=== PATIENT | male | born 1950 | race Caucasian/White ===

== ENCOUNTER 2018-05-13 05:35 | Outpatient (CLI) | payer BC, MEDICARE ==
[~2018-05-13] VITALS: Ht 180.3 cm; Wt 67.6 kg
== END 2018-05-13 13:26 | disposition home or self-care (01) ==
LOC: PREOP 05:35
PROVIDERS: ATTEND Surgery
DX: Z01.818 Encounter for other preprocedural examination (principal)

== ENCOUNTER 2018-05-16 07:59 | Day surgery (SDC) | payer BC, MEDICARE ==
[~2018-05-16] VITALS: Ht 180.3 cm; Wt 62.2 kg
--- OUTSIDE RECORDS SUMMARY | 2018-05-16 08:04 | XMS REPORT ---
Author Author PITER MOREIRA [facility] Address [address] [place], [place] [id number] Care Team Providers Care Customer Support Consultant Name Role Phone PITER MOREIRA PCP Unavailable Allergies and Adverse Reactions Name Reaction Notes NO KNOWN DRUG ALLERGIES Plan of Treatment Planned Activity Comments Planned Date Planned Time Plan/Goal COMPLETE CBC W/AUTO DIFF WBC 04/13/2015 12:00 AM COMPREHEN METABOLIC PANEL 04/13/2015 12:00 AM LIPID PANEL 04/13/2015 12:00 AM ASSAY OF TOTAL TESTOSTERONE 04/13/2015 12:00 AM COMPREHEN METABOLIC PANEL 04/18/2013 12:00 AM Medications Active Name Start Date Estimated Completion Date SIG Comments terbinafine HCl 250 mg oral tablet 01/05/2015 take 1 tablet (250 mg) by oral route twice daily for 7 days then off for 21 days then repeat Zithromax Z-Rich 250 mg oral tablet 04/13/2015 04/18/2015 take 2 tablets ( 500 mg) by oral route once daily for 1 day then 1 tablet (250 mg) by oral route once daily for 4 days fluorouracil 5 % topical cream 04/13/2015 apply a sufficient amount to cover the lesions in the affected area(s) by topical route 2 times per day triamcinolone acetonide 0.1 % topical cream 04/13/2015 apply to affected area(s) by topical route 2 times a day Name Start Date Expiration Date SIG Comments prednisone 20 mg oral tablet 04/02/2013 04/14/2013 2X4 days 1X4 days 1/2X4 days [place] 5-325 mg oral tablet 04/02/2013 04/12/2013 take 1 tablet by oral route every 6 hours as needed for pain for 10 days cyclobenzaprine 10 mg oral tablet 04/02/2013 04/12/2013 take 1 tablet (10 mg ) by oral route 3 times per day for 10 days amoxicillin 500 mg oral capsule 12/08/2013 12/18/2013 take 1 capsule (500 mg) by oral route 3 times per day for 10 days Medrol (Rich) 4 mg oral tablets,dose pack 12/08/2013 take as directed Suphedrine 30 mg oral tablet 12/08/2013 take 1-2 tablets (30-60 mg) by oral route every 6 hours as needed prednisone 20 mg oral tablet 08/03/2014 08/11/2014 4x2 days 3x2 days 2x2 days 1x2 days Bactrim DS 800-160 mg oral tablet 12/30/2014 01/09/2015 take 1 tablet by oral route 2 times a day for 10 days Problem List Description Status Onset *No known medical problems Active Toenail fungus Active 01/05/2015 Varicose veins of both lower extremities Active 01/05/2015 Vital Signs Date Time BP-Sys(mm[Hg] BP-Sheeba(mm[Hg]) HR(bpm) RR(rpm) Temp WT HT HC BMI BSA BMI Percentile O2 Sat(%) 04/13/2015 10:12:00 AM 140 mmHg 75 mmHg 70 bpm 16 rpm 97.8 F 157 lbs 71 in 21.90 kg/m2 1.89 m2 97 % 01/04/2015 3:07:00 PM 120 mmHg 70 mmHg 76 bpm 18 rpm 98.4 F 153 lbs 71 in 21.3389 kg/m 1.8646 m 98 % 12/29/2014 2:30:00 PM 110 mmHg 60 mmHg 70 bpm 16 rpm 98.5 F 153 lbs 72 in 20.75 kg/m2 1.88 m2 98 % 08/03/2014 1:32:00 PM 110 mmHg 60 mmHg 54 bpm 16 rpm 97.7 F 161 lbs 72 in 21.8353 kg/m 1.9261 m 99 % 12/08/2013 3:55:00 PM 100 mmHg 62 mmHg 78 bpm 20 rpm 98.7 F 154.6 lbs 70 in 22.18 kg/m2 1.86 m2 99 % 04/18/2013 10:22:00 AM 110 mmHg 72 mmHg 68 bpm 18 rpm 97.9 F 146 lbs 70 in 20.9486 kg/m 1.8085 m 04/01/2013 10:52:00 AM 100 mmHg 60 mmHg 64 bpm 16 rpm 96.7 F 148 lbs 70 in 21.24 kg/m2 1.82 m2 100 % 04/30/2012 2:44:00 PM 100 mmHg 60 mmHg 88 bpm 16 rpm 97.9 F 150 lbs 74 in 19.2587 kg/m 1.8848 m 100 % 09/02/2010 10:04:00 AM 108 mmHg 74 mmHg 72 bpm 157 lbs 97 % Social History Name Description Comments denies alcohol use Tobacco Never smoker History of Procedures Date Ordered Description Order Status 04/30/2012 12:00 AM THER/PROPH/DIAG INJ SC/IM Reviewed 04/30/2012 12:00 AM Decadron, Per 1 Mg [facility]# [address]-21 Reviewed 04/30/2012 12:00 AM Depo-Medrol, Per 80 Mg [facility]#8378-0875-98 Reviewed 04/30/2012 12:00 AM Rocephin 1 gram [facility]#9466-4928-25 Reviewed 04/01/2013 12:00 AM THER/PROPH/DIAG INJ SC/IM Reviewed 04/01/2013 12:00 AM Decadron, Per 1 Mg [facility]# [address]-89 Reviewed 04/01/2013 12:00 AM Depo-Medrol, Per 80 Mg [facility]#3248-6442-49 Reviewed 04/01/2013 12:00 AM Toradol 60 Mg [facility]#7635-9489-01 Reviewed 04/18/2013 12:00 AM COMPLETE CBC W/AUTO DIFF WBC Reviewed 04/18/2013 12:00 AM LIPID PANEL Reviewed 04/18/2013 12:00 AM Prostate Cancer Screening Reviewed 12/08/2013 12:00 AM CHEST X-RAY 2VW FRONTAL&LATL Returned 09/02/2010 12:00 AM THER/PROPH/DIAG INJ SC/IM Reviewed 09/02/2010 12:00 AM Decadron Inj.8mg-([facility]) [facility] #[id number] Reviewed 09/02/2010 12:00 AM Depo-Medrol 80 Mg Im/[facility] [id number] Reviewed Results Summary Data and Description Results 04/18/2013 11:07 AM WBC 6.8 RBC 4.95 HGB 15.30 g/dLHCT 44.10 %MCV 89.0 fLMCH 30.90 pgMCHC 34.70 g/dLRDW CV 13.20 %MPV 9.30 fLPLT 276 %NEUT 64.20 %%LYMP 24.50 %%MONO 8.10 %%EOS 2.50 %%BASO 0.70 %#NEUT 4.35 #LYMP 1.66 #MONO 0.55 #EOS 0.17 #BASO 0.05 GLUCOSE 89.0 mg/dLSODIUM 140.0 mmol/LPOTASSIUM 4.10 mmol/ LCHLORIDE 105.0 mmol/LCO2 25.0 mmol/LBUN 23.0 mg/dLCREATININE 0.90 mg/dLSGOT/ AST 19.0 IU/LSGPT/ALT 20.0 IU/LALK PHOS 95.0 IU/LTOTAL PROTEIN 6.90 g/dLALBUMIN 4.40 g/dLTOTAL BILI 0.80 mg/dLCALCIUM 10.10 mg/dLeGFR >60 mL/min/1.73 [id number] 63.0 mg/dLCHOLESTEROL 198.0 mg/dLHDL 58.0 mg/dLLDL (CALC) 127.0 mg/dLPSA TOTAL 2.160 ng/mL History Of Immunizations Not available. History of Past Illness Name Date of Onset Comments *No known medical problems Toenail fungus 01/05/2015 Varicose veins of both lower extremities 01/05/2015 Cough Sep 02 2010 10:04AM Seasonal Allergies Sep 02 2010 10:04AM Upper Respiratory Infection Sep 02 2010 10:04AM Pharyngitis, Acute Apr 30 2012 2:45PM Post-nasal drainage Apr 30 2012 2:45PM Upper Respiratory Infection Apr 30 2012 2:45PM Low Back Pain Apr 01 2013 10:53AM Lumbar Muscle Strain Apr 01 2013 10:53AM Screening For Prostate Cancer Apr 18 2013 10:27AM Special screening for cardiovascular, respiratory, and genitourinary diseases; ischemic heart disease Apr 18 2013 10:27AM Benign Hypertrophy of Prostate (BPH) Apr 18 2013 10:27AM Back pain Dec 08 2013 3:58PM Cough Dec 08 2013 3:58PM Sinusitis Dec 08 2013 3:58PM Knee pain, acute, left Aug 03 2014 1:33PM Cellulitis Dec 29 2014 2:31PM Varicose veins of both lower extremities Jan 04 2015 3:07PM Toenail fungus Jan 04 2015 3:07PM Fatigue Apr 13 2015 9:38AM Screening for prostate cancer Apr 13 2015 9:38AM Familial hypercholesteremia Apr 13 2015 9:38AM Mild Chronic Seasonal Allergies Apr 13 2015 10:13AM Acute pharyngitis, unspecified etiology Apr 13 2015 10:13AM Moderate Acute Post-nasal drainage Apr 13 2015 10:13AM Moderate Acute Nasal congestion Apr 13 2015 10:13AM Moderate Chronic Actinic keratosis due to exposure to sunlight Apr 13 2015 10: 13AM Moderate Chronic Dermatitis Apr 13 2015 10:13AM Payers Insurance Name Company Name Plan Name Plan Number Policy Number Policy Group Number [facility] Date [id number]/A [employer] [id number] [id number] History of Encounters Visit Date Visit Type Provider 04/13/2015 Office visit PITER PAN 01/04/2015 Office visit PITER PAN 12/29/2014 Office visit PITER PAN 08/03/2014 Office visit PITER PAN 12/08/2013 Office visit Khushboo Verdugo APRN 04/18/2013 Office visit Aroldo Ennis MD 04/01/2013 Office visit PITER PAN 04/30/2012 Office visit PITER PAN 09/02/2010 Office visit Piter Moreira PA-C
--- OUTSIDE RECORDS SUMMARY | 2018-05-16 08:04 | XMS REPORT ---
Author Author PITER MOREIRA [facility] Address [address] [place], [place] [id number] Care Team Providers Care Assistant Family Teacher Name Role Phone PITER MOREIRA PCP PITER MOREIRA PreferredProvider Allergies and Adverse Reactions Name Reaction Notes NO KNOWN DRUG ALLERGIES Plan of Treatment Planned Activity Comments Planned Date Planned Time Plan/Goal [facility] 04/18/2013 12:00 AM Medications Active Name Start Date Estimated Completion Date SIG Comments Maxitrol 3.5mg/mL-10,000 unit/mL-0.1 % ophthalmic (eye) drops,suspension 201703/01/2018 instill 1 drop into affected eye(s) by ophthalmic route every 4 hours for 4 days Zithromax Z-Rich 250 mg oral tablet 02/25/2018 03/02/2018 take 2 tablets (500 mg) by oral route once daily for 1 day then 1 tablet (250 mg) by oral route once daily for 4 days Levaquin 500 mg oral tablet 02/28/2018 03/10/2018 take 1 tablet (500 mg) by oral route once daily for 10 days Name Start Date Expiration Date SIG Comments prednisone 20 mg oral tablet 04/02/2013 04/14/2013 2X4 days 1X4 days 1/2X4 days [place] 5-325 mg oral tablet 04/02/2013 04/12/2013 take [...] 2 times a day for 10 days Zithromax Z-Rich 250 mg oral tablet 05/12/2016 05/17/2016 take 2 tablets ( 500 mg) by oral route once daily for 1 day then 1 tablet (250 mg) by oral route once daily for 4 days Bactrim DS 800-160 mg oral tablet 10/24/2016 11/03/2016 take 1 tablet by oral route 2 times a day for 10 days Medrol (Rich) 4 mg oral tablets,dose pack 10/24/2016 take as directed Discontinued Name Start Date Discontinued Date SIG Comments terbinafine HCl 250 mg oral tablet 01/05/2015 10/26/2016 take 1 tablet (250 mg ) by oral route twice daily for 7 days then off for 21 days then repeat fluorouracil 5 % topical cream 04/13/2015 10/26/2016 apply a sufficient amount to cover the lesions in the affected area(s) by topical route 2 times per day triamcinolone acetonide 0.1 % topical cream 04/13/2015 10/26/2016 apply to affected area(s) by topical route 2 times a day Problem List Description Status Onset Toenail fungus Active 01/05/2015 Varicose veins of both lower extremities Active 01/05/2015 Vital Signs Date Time BP-Sys(mm[Hg] BP-Sheeba(mm[Hg]) HR(bpm) RR(rpm) Temp WT HT HC BMI BSA BMI Percentile O2 Sat(%) 02/25/2018 4:16:00 PM 122 mmHg 80 mmHg 68 bpm 18 rpm 98.6 F 140 lbs 98 % 10/24/2016 11:52:00 AM 110 mmHg 72 mmHg 50 bpm 18 rpm 98.4 F 145 lbs 71 in 20.2232 kg/m 1.8152 m 99 % 05/15/2016 7:54:00 AM 118 mmHg 70 mmHg 64 bpm 16 rpm 96.7 F 159 lbs 71 in 22.18 kg/m2 1.90 m2 99 % 04/13/2015 10:12:00 AM 140 mmHg 75 mmHg [...] of Procedures Date Ordered Description Order Status 04/13/2015 12:00 AM COMPLETE CBC W/AUTO DIFF WBC Reviewed 04/13/2015 12:00 AM COMPREHEN METABOLIC PANEL Reviewed 04/13/2015 12:00 AM LIPID PANEL Reviewed 04/13/2015 12:00 AM Prostate Cancer Screening Reviewed 04/13/2015 12:00 AM ASSAY OF TOTAL TESTOSTERONE Reviewed 04/13/2015 12:00 AM Decadron, Per [address] [facility]# [address]-18 Reviewed 05/15/2016 12:00 AM THER/PROPH/DIAG INJ SC/IM Reviewed 05/15/2016 12:00 AM Decadron 8mg Injection Reviewed 05/15/2016 12:00 AM Depo-Medrol 80mg Injection Reviewed 04/30/2012 12:00 AM THER/PROPH/DIAG INJ SC/IM Reviewed 04/30/2012 12:00 AM Decadron, Per [address] [facility]# [address]-47 Reviewed 04/30/2012 12:00 AM Depo-Medrol, Per [address] [facility]#5696-4500-33 Reviewed 04/30/2012 12:00 AM Rocephin [address] [facility]#9470-6668-23 Reviewed 02/25/2018 12:00 AM THERAPEUTIC PROPHYLACTIC/DX INJECTION SUBQ/IM Reviewed 02/25/2018 12:00 AM Decadron 8mg Injection, [facility] Medicare Reviewed 04/01/2013 12:00 AM THER/PROPH/DIAG INJ SC/IM Reviewed 04/01/2013 12:00 AM Decadron, Per [address] [facility]# [address]-41 Reviewed 04/01/2013 12:00 AM Depo-Medrol, Per [address] [facility]#3638-9653-17 Reviewed 04/01/2013 12:00 AM Toradol 60 [address] [facility]#6566-1841-78 Reviewed 04/18/2013 12:00 AM COMPLETE CBC W/AUTO DIFF WBC Reviewed 04/18/2013 12:00 AM LIPID PANEL Reviewed 04/18/2013 12:00 AM Prostate Cancer Screening Reviewed 12/08/2013 12:00 AM CHEST X-RAY 2VW FRONTAL&LATL Reviewed 09/02/2010 12:00 AM THER/PROPH/DIAG INJ SC/IM Reviewed 09/02/2010 12:00 AM Decadron Inj.8mg-([facility] #[id number] Reviewed 09/02/2010 12:00 AM Depo-Medrol 80 Mg Im/[facility] [id number] Reviewed Results Summary Date and Description Results 04/18/2013 11:07 AM WBC 6.8 RBC 4.95 HGB 15.30 g/dLHCT 44.10 %MCV 89.0 fLMCH 30.90 pgMCHC 34.70 g/dLRDW SD 42 RDW CV 13.20 %MPV 9.30 fLPLT 276 NRBC# 0.00 NRBC% 0.0 %NEUT 64.20 %%LYMP 24.50 %%MONO 8.10 %%EOS 2.50 %%BASO 0.70 %#NEUT 4.35 #LYMP 1.66 #MONO 0.55 #EOS 0.17 #BASO 0.05 MANUAL DIFF NOT IND TRIGLYCERIDES 63.0 mg/dLCHOLESTEROL 198.0 mg/dLHDL 58.0 mg/dLTOT CHOL/HDL 3.4 LDL (CALC) 127.0 mg/dLPSA TOTAL 2.160 ng/mL History Of Immunizations Not available. History of Past Illness Name Date of Onset Comments Toenail fungus 01/05/2015 Varicose veins of both [...] Moderate Chronic Dermatitis Apr 13 2015 10:13AM Moderate Acute Purulent postnasal drainage May 15 2016 7:56AM Upper respiratory tract infection, unspecified type May 15 2016 7:56AM Moderate Acute Nasal congestion May 15 2016 7:56AM Exposure to second hand smoke May 15 2016 7:56AM Cellulitis of left lower extremity Oct 24 2016 11:53AM Toxic effect of unspecified spider venom, accidental (unintentional), initial encounter Oct 24 2016 11:53AM Immunization due Oct 24 2016 11:53AM Upper respiratory tract infection, unspecified type Feb 25 2018 4:17PM Sinus pressure Feb 25 2018 4:17PM Allergic conjunctivitis of both eyes Feb 25 2018 4:17PM Payers Insurance Name Company Name Plan Name Plan Number Policy Number Policy Group Number Start Date [id number]A [employer] [facility] [id number] N/A BC[employer] [id number] N/A BC[employer] [id number] N/A History of Encounters Visit Date Visit Type Provider 02/25/2018 Office visit PITER PAN 10/24/2016 Office visit PITER PAN 05/15/2016 Office visit PITER PAN 04/13/2015 Office visit PITER PAN 01/04/2015 Office visit PITER PAN 12/29/2014 Office visit PITER PAN 08/03/2014 Office visit PITER PAN 12/08/2013 Office visit Khushboo Verdugo APRN 04/18/2013 Office visit Aroldo Ennis MD 04/01/2013 Office visit PITER PAN 04/30/2012 Office visit PITER PAN 09/02/2010 Office visit Piter Moreira PA-C
--- OUTSIDE RECORDS SUMMARY | 2018-05-16 08:04 | XMS REPORT ---
Author Author PITER MOREIRA [facility] Address [address] [place], [place] [id number] Care Team Providers Care Svp Group Director Name Role Phone PITER MOREIRA PCP Unavailable [...] then off for 21 days then repeat Name Start Date Expiration Date SIG Comments prednisone 20 mg oral tablet 04/02/2013 04/14/2013 2X4 days 1X4 days 1/2X4 days [place] 5-325 mg oral tablet 04/02/2013 04/12/2013 take [...] HC BMI BSA BMI Percentile O2 Sat(%) 01/04/2015 3:07:00 PM 120 mmHg 70 mmHg 76 bpm 18 rpm 98.4 F 153 lbs 71 in 21.34 kg/m2 1.86 m2 98 % 12/29/2014 2:30:00 PM 110 mmHg 60 mmHg 70 bpm 16 rpm 98.5 F 153 lbs 72 in 20.7503 kg/m 1.8776 m 98 % 08/03/2014 1:32:00 PM 110 mmHg 60 mmHg 54 bpm 16 rpm 97.7 F 161 lbs 72 in 21.84 kg/m2 1.93 m2 99 % 12/08/2013 3:55:00 PM 100 mmHg 62 mmHg 78 bpm 20 rpm 98.7 F 154.6 lbs 70 in 22.1826 kg/m 1.861 m 99 % 04/18/2013 10:22:00 AM 110 mmHg 72 mmHg 68 bpm 18 rpm 97.9 F 146 lbs 70 in 20.95 kg/m2 1.81 m2 04/01/2013 10:52:00 AM 100 mmHg 60 mmHg 64 bpm 16 rpm 96.7 F 148 lbs 70 in 21.2356 kg/m 1.8209 m 100 % 04/30/2012 2:44:00 PM 100 mmHg 60 mmHg 88 bpm 16 rpm 97.9 F 150 lbs 74 in 19.26 kg/m2 1.88 m2 100 % 09/02/2010 10:04:00 AM 108 mmHg 74 mmHg 72 bpm 157 lbs 97 % Social History Name Description Comments denies alcohol use Tobacco Never smoker History of Procedures Date Ordered Description Order Status 04/30/2012 12:00 AM THER/PROPH/DIAG INJ SC/IM Reviewed 04/30/2012 12:00 AM Decadron, Per 1 Mg [facility]# [address]-50 Reviewed 04/30/2012 12:00 AM Depo-Medrol, Per 80 Mg [facility]#4395-3352-58 Reviewed 04/30/2012 12:00 AM Rocephin 1 gram [facility]#0463-7213-89 Reviewed 04/01/2013 12:00 AM THER/PROPH/DIAG INJ SC/IM Reviewed 04/01/2013 12:00 AM Decadron, Per 1 Mg [facility]# [address]-99 Reviewed 04/01/2013 12:00 AM Depo-Medrol, Per 80 Mg [facility]#0703-5821-66 Reviewed 04/01/2013 12:00 AM Toradol 60 Mg [facility]#8895-0307-21 Reviewed 04/18/2013 12:00 AM COMPLETE CBC W/AUTO DIFF WBC Reviewed 04/18/2013 12:00 AM LIPID PANEL Reviewed 04/18/2013 12:00 AM Prostate Cancer Screening Reviewed 12/08/2013 12:00 AM CHEST X-RAY 2VW FRONTAL&LATL Returned 09/02/2010 12:00 AM THER/PROPH/DIAG INJ SC/IM Reviewed 09/02/2010 12:00 AM Decadron Inj.8mg-([facility]) [facility] #[id number] Reviewed 09/02/2010 12:00 AM Depo-Medrol 80 Mg Im/[facility] [id number] Reviewed Results Summary Data and Description Results [...] BILI 0.80 mg/dLCALCIUM 10.10 mg/dLeGFR >60 mL/min/1.73 [id number] 63.0 mg/dLCHOLESTEROL 198.0 mg/dLHDL 58.0 mg/dLLDL (CALC) [...] 9:38AM Familial hypercholesteremia Apr 13 2015 9:38AM Payers Insurance Name Company Name Plan Name Plan Number Policy Number Policy Group Number Start Date Bcbs [facility] [id number] N/A [facility] [employer] [id number] N/A [id number]A History of Encounters Visit Date Visit Type Provider 04/13/2015 Office visit PITER PAN 01/04/2015 Office visit PITER PAN 12/29/2014 Office visit PITER PAN 08/03/2014 Office visit PITER PAN 12/08/2013 Office visit Khushboo Verdugo APRN 04/18/2013 Office visit Arodlo Ennis MD 04/01/2013 Office visit PITER PAN 04/30/2012 Office visit PITER PAN 09/02/2010 Office visit Piter Moreira PA-C
--- OUTSIDE RECORDS SUMMARY | 2018-05-16 08:05 | XMS REPORT | Continuity of Care Document ---
Author Author [facility] Address Unknown Phone Unavailable Allergies Active Description Code Type Severity Reaction Onset Reported/Identified Relationship to Patient Clinical Status Yes No Known Drug Allergies [id number] N/A N/A Yes No Known Drug Allergies [id number] Drug Allergy Unknown N/A 05/13/2018 Medications There is no data. Problems Date Dx Coded Attending Type Code Diagnosis Diagnosed By 07/08/2017 P [id number] Colles' fracture of left radius, initial encounter for closed fracture 07/08/2017 S [id number] Fall on same level due to ice and snow, initial encounter 07/08/2017 S [id number] Garden or yard in single-family (private) house as the place of occurrence of the external cause 07/08/2017 S [id number] Activity, walking an animal Procedures There is no data. Results There is no data. Encounters ACCT No. Visit Date/Time Discharge Status Pt. Type Provider Facility Loc./Unit Complaint [id number] 02/25/2018 16:02:48 02/25/2018 23:59:59 [facility] Outpatient TAMIE MOREIRA [id number] 10/24/2016 10:10:46 10/24/2016 23:59:59 [facility] Outpatient TAMIE MOREIRA [id number] 05/15/2016 08:51:14 05/15/2016 23:59:59 [facility] Outpatient TAMIE MOREIRA [id number] 04/13/2015 10:14:40 04/13/2015 23:59:59 [facility] Outpatient TAMIE MOREIRA [id number] 01/04/2015 22:34:44 01/04/2015 23:59:59 [facility] Outpatient TAMIE MOREIRA [id number] 01/04/2015 22:31:05 01/04/2015 23:59:59 [facility] Outpatient TMAIE MOREIRA [id number] 12/08/2013 16:20:13 12/08/2013 23:59:59 [facility] Outpatient Katarina Verdugoy Mora [id number] 05/13/2018 05:35:00 05/13/2018 13:26:00 DIS Outpatient ANGEL LUX MD [facility] PREOP ING. HERNIA, SCREENING COLONOSCOPY [id number] 05/16/2018 07:59:00 ACT Outpatient ANGEL LUX MD [facility] SYMPTOMATIC RT. INGUINAL HERNIA, SCREENING COLONOS [id number] 07/09/2017 11:11:15 Document Registration [id number] 07/08/2017 08:25:00 Document Registration
--- OUTSIDE RECORDS SUMMARY | 2018-05-16 08:05 | XMS REPORT ---
Author Author PITER MOREIRA [facility] Address [address] [place], [place] [address] Care Team Providers Care Cable Testers Helper Name Role Phone PITER MOREIRA PCP Unavailable Aroldo Ennis PreferredProvider Unavailable Allergies and Adverse Reactions Name Reaction Notes NO KNOWN DRUG ALLERGIES Plan of Treatment Planned Activity Comments Planned Date Planned Time Plan/Goal [facility] 04/18/2013 12:00 AM Medications Active Name Start Date Estimated Completion Date SIG Comments terbinafine HCl 250 mg oral tablet 01/05/2015 take 1 tablet (250 mg) by oral route twice daily for 7 days then off for 21 days then repeat fluorouracil 5 % topical cream 04/13/2015 apply a sufficient amount to cover the lesions in the affected area(s) by topical route 2 times per day triamcinolone acetonide 0.1 % topical cream 04/13/2015 apply to affected area(s) by topical route 2 times a day Medrol (Rich) 4 mg oral tablets,dose pack 05/12/2016 take as directed Name Start Date Expiration Date SIG Comments prednisone 20 mg oral tablet 04/02/2013 04/14/2013 2X4 days 1X4 days 1/2X4 days [place] 5-325 mg oral tablet 04/02/2013 04/12/2013 take [...] oral route once daily for 4 days Problem List Description Status Onset *No known medical problems Active Toenail fungus Active 01/05/2015 Varicose veins of both lower extremities Active 01/05/2015 Vital Signs Date Time BP-Sys(mm[Hg] BP-Sheeba(mm[Hg]) HR(bpm) RR(rpm) Temp WT HT HC BMI BSA BMI Percentile O2 Sat(%) 05/15/2016 7:54:00 AM 118 mmHg 70 mmHg 64 bpm 16 rpm 96.7 F 159 lbs 71 in 22.18 kg/m2 1.90 m2 99 % 04/13/2015 10:12:00 AM 140 mmHg 75 mmHg 70 bpm 16 rpm 97.8 F 157 lbs 71 in 21.8968 kg/m 1.8888 m 97 % 01/04/2015 3:07:00 PM 120 mmHg [...] 04/13/2015 12:00 AM Decadron, Per 1 Mg [facility]# [address]-36 Reviewed 05/15/2016 12:00 AM THER/PROPH/DIAG INJ SC/IM Reviewed 05/15/2016 12:00 AM Decadron 8mg Injection Reviewed 05/15/2016 12:00 AM Depo-Medrol 80mg Injection Reviewed 04/30/2012 12:00 AM THER/PROPH/DIAG INJ SC/IM Reviewed 04/30/2012 12:00 AM Decadron, Per 1 Mg [facility]# [address]-74 Reviewed 04/30/2012 12:00 AM Depo-Medrol, Per 80 Mg [facility]#6270-3541-80 Reviewed 04/30/2012 12:00 AM Rocephin 1 gram [facility]#4415-0759-04 Reviewed 04/01/2013 12:00 AM THER/PROPH/DIAG INJ SC/IM Reviewed 04/01/2013 12:00 AM Decadron, Per 1 Mg [facility]# [address]-75 Reviewed 04/01/2013 12:00 AM Depo-Medrol, Per 80 Mg [facility]#2262-3037-56 Reviewed 04/01/2013 12:00 AM Toradol 60 Mg [facility]#5338-7716-46 Reviewed 04/18/2013 12:00 AM COMPLETE CBC W/AUTO DIFF WBC Reviewed 04/18/2013 12:00 AM LIPID PANEL Reviewed 04/18/2013 12:00 AM Prostate Cancer Screening Reviewed 12/08/2013 12:00 AM CHEST X-RAY 2VW FRONTAL&LATL Reviewed 09/02/2010 12:00 AM THER/PROPH/DIAG INJ SC/IM Reviewed 09/02/2010 12:00 AM Decadron Inj.8mg-(JollyDennis) [facility] #[id number] Reviewed 09/02/2010 12:00 AM Depo-Medrol 80 Mg Im/St Dennis [facility] [id number] Reviewed Results Summary Data and Description Results 04/18/2013 11:07 AM WBC 6.8 RBC 4.95 HGB 15.30 g/dLHCT 44.10 %MCV 89.0 fLMCH 30.90 pgMCHC 34.70 g/dLRDW SD 42 RDW CV 13.20 %MPV 9.30 fLPLT 276 NRBC# 0.00 NRBC% 0.0 %NEUT 64.20 %%LYMP 24.50 %%MONO 8.10 %%EOS 2.50 %%BASO 0.70 %#NEUT 4.35 #LYMP 1.66 #MONO 0.55 #EOS 0.17 #BASO 0.05 MANUAL DIFF NOT IND GLUCOSE 89.0 mg/dLSODIUM 140.0 mmol/LPOTASSIUM 4.10 mmol/LCHLORIDE 105.0 mmol/LCO2 25.0 mmol/LBUN 23.0 mg/dLCREATININE 0.90 mg/dLSGOT/AST 19.0 IU/LSGPT/ALT 20.0 IU/ LALK PHOS 95.0 IU/LTOTAL PROTEIN 6.90 g/dLALBUMIN 4.40 g/dLTOTAL BILI 0.80 mg/ dLCALCIUM 10.10 mg/dLAGE 63 GFR NonAA 86 GFR AA 104 eGFR >60 mL/min/1.73 m2eGFR AA* >60 TRIGLYCERIDES 63.0 mg/dLCHOLESTEROL 198.0 mg/dLHDL 58.0 mg/dLTOT CHOL/ HDL 3.4 LDL (CALC) 127.0 mg/dLPSA TOTAL 2.160 [...] second hand smoke May 15 2016 7:56AM Payers Insurance Name Company Name Plan Name Plan Number Policy Number Policy Group Number Start Date [id number] N/A [employer] [id number] N/A BC[employer] [id number]A BC [id number] N/A History of Encounters Visit Date Visit Type Provider 05/15/2016 Office visit PITER PAN 04/13/2015 Office visit PITER PAN 01/04/2015 Office visit PITER PAN 12/29/2014 Office visit PITER PAN 08/03/2014 Office visit PITER PAN 12/08/2013 Office visit Khushboo Verdugo APRN 04/18/2013 Office visit Aroldo Ennis MD 04/01/2013 Office visit PITER PAN 04/30/2012 Office visit PITER PAN 09/02/2010 Office visit Piter Moreira PA-C
--- OUTSIDE RECORDS SUMMARY | 2018-05-16 08:05 | XMS REPORT ---
Author Author PITER MOREIRA [facility] Address [address] [place], [place] [address] Care Team Providers Care Psychiatric Orderly Name Role Phone PITER MOREIRA PCP Unavailable PITER MOREIRA PreferredProvider Unavailable Allergies and Adverse Reactions Name Reaction Notes NO KNOWN DRUG ALLERGIES Plan of Treatment Planned Activity Comments Planned Date Planned Time Plan/Goal [facility] 04/18/2013 12:00 AM Medications Active Name Start Date Estimated Completion Date SIG Comments Bactrim DS 800-160 mg oral tablet 10/24/2016 11/03/2016 take 1 tablet by oral route 2 times a day for 10 days Medrol (Rich) 4 mg oral tablets,dose pack 10/24/2016 take as directed Name Start Date Expiration Date SIG Comments prednisone 20 mg oral tablet 04/02/2013 04/14/2013 2X4 days 1X4 days 1/2X4 days [place] 5-325 mg oral tablet 04/02/2013 04/12/2013 take [...] oral route once daily for 4 days Discontinued Name Start Date Discontinued Date SIG [...] a day Problem List Description Status Onset *No known medical problems Active Toenail fungus Active 01/05/2015 Varicose veins of both lower extremities Active 01/05/2015 Vital Signs Date Time BP-Sys(mm[Hg] BP-Sheeba(mm[Hg]) HR(bpm) RR(rpm) Temp WT HT HC BMI BSA BMI Percentile O2 Sat(%) 10/24/2016 11:52:00 AM 110 mmHg 72 mmHg 50 bpm 18 rpm 98.4 F 145 lbs 71 in 20.22 kg/m2 1.82 m2 99 % 05/15/2016 7:54:00 AM 118 mmHg 70 mmHg 64 bpm 16 rpm 96.7 F 159 lbs 71 in 22.1758 kg/m 1.9008 m 99 % 04/13/2015 10:12:00 AM 140 mmHg [...] 12:00 AM Decadron, Per 1 Mg [facility]# [address]-56 Reviewed 05/15/2016 12:00 AM THER/PROPH/DIAG INJ SC/IM Reviewed 05/15/2016 12:00 AM Decadron 8mg Injection Reviewed 05/15/2016 12:00 AM Depo-Medrol 80mg Injection Reviewed 04/30/2012 12:00 AM THER/PROPH/DIAG INJ SC/IM Reviewed 04/30/2012 12:00 AM Decadron, Per 1 Mg [facility]# [address]-54 Reviewed 04/30/2012 12:00 AM Depo-Medrol, Per 80 Mg [facility]#2040-9322-89 Reviewed 04/30/2012 12:00 AM Rocephin 1 gram [facility]#8587-8890-63 Reviewed 04/01/2013 12:00 AM THER/PROPH/DIAG INJ SC/IM Reviewed 04/01/2013 12:00 AM Decadron, Per 1 Mg [facility]# [address]-91 Reviewed 04/01/2013 12:00 AM Depo-Medrol, Per 80 Mg [facility]#8938-7647-02 Reviewed 04/01/2013 12:00 AM Toradol 60 Mg [facility]#8372-8298-42 Reviewed 04/18/2013 12:00 AM COMPLETE CBC W/AUTO DIFF WBC Reviewed 04/18/2013 12:00 AM LIPID PANEL Reviewed 04/18/2013 12:00 AM Prostate Cancer Screening Reviewed 12/08/2013 12:00 AM CHEST X-RAY 2VW FRONTAL&LATL Reviewed 09/02/2010 12:00 AM THER/PROPH/DIAG INJ SC/IM Reviewed 09/02/2010 12:00 AM Decadron Inj.8mg-(St.[facility]ennis) [facility] #[id number] Reviewed 09/02/2010 12:00 AM Depo-Medrol 80 Mg Im/St Dennis [facility] [id number] Reviewed Results Summary Date and Description Results [...] 11:53AM Immunization due Oct 24 2016 11:53AM Payers Insurance Name Company Name Plan Name Plan Number Policy Number Policy Group Number Start Date [facility] [id number] N/A [employer] [id number] N/A BCBS [employer] [facility] [id number] N/A BCBS [facility]c[employer] [id number]A History of Encounters Visit Date Visit Type Provider 10/24/2016 Office visit PITER PAN 05/15/2016 Office [...]
[2018-05-16 08:25] VITALS: BP 127/79
--- NOTE | 2018-05-16 08:29 | Progress Note-Pre Operative ---
Pre-Operative Progress Note H&P Reviewed The H&P was reviewed, patient examined and no changes noted. Date Seen by Provider: May 16, 2018 Time Seen by Provider: 08:20 Date H&P Reviewed: May 16, 2018 Time H&P Reviewed: 08:25 Pre-Operative Diagnosis: Symptomatic Right inguinal hernia and screening colonoscopy PEPITO CERON APRN May 16, 2018 08:29
[2018-05-16] MEDS ORDERED: morphine INJ 10 MG/ML 1ML (SYR OR VIAL) IVP PRN (08:30)
[2018-05-16] MEDS ORDERED: ONDANSETRON 4 MG/2 ML (SDV) Z0FRAN IVP PRN ×2 (08:30→11:00)
[2018-05-16] MEDS ORDERED: ACETAMINOPHEN 325 MG TABLET PO PRN (08:30)
[2018-05-16] MEDS ORDERED: HYDROcodone/APAP 5 MG/325 MG (LORTAB) TAB PO ONE (08:30)
[2018-05-16] MEDS ORDERED: BUP/EPI 0.5% 1:200,000 (SENSORCAINE) 30 ML VIAL ONE (08:30)
[2018-05-16] MEDS ORDERED: HYDR-3816 PO (08:31)
--- NOTE | 2018-05-16 08:32 | Discharge Inst-Surgical ---
D/C Lap Instructions-KIDO New, Converted, or Re-Newed RX: RX on Chart Follow Up Appt in 2 weeks Activity as tolerated No driving for 24 hours No driving while on pain medications Incentive Spirometry use every 2 hours while awake Regular Diet Symptoms to Report: Fever over 101 degree F, Nausea/Vomiting Infection Signs and Symptoms to report: Increased redness, Foul odor of wound, Increased drainage Bathing instructions: May shower Operative Area Clean/Dry; Keep incision clean/dry If any problems/questions: Contact your physician or go to Emergency Room PEPITO CERON APRN May 16, 2018 08:32
[2018-05-16] MEDS ORDERED: ceFAZolin INJECTION 1,000 MG in NS (IVPB) 50 ML IV ONE (08:45)
[2018-05-16 08:49] LABS: BASOPHILS # (AUTO) 0.1 10^3/uL (0.0-0.1); BASOPHILS % (AUTO) 1 % (0-10); EOSINOPHILS # (AUTO) 0.2 10^3/uL (0.0-0.3); EOSINOPHILS % (AUTO) 4 % (0-10); HEMATOCRIT 45 % (40-54); HEMOGLOBIN 15.5 G/DL (13.3-17.7); LYMPHOCYTES # (AUTO) 1.3 X 10^3 (1.0-4.0); LYMPHOCYTES % (AUTO) 28 % (12-44); MEAN CORPUSCULAR HEMOGLOBIN 31 PG (25-34); MEAN CORPUSCULAR HGB CONC 35 G/DL (32-36); MEAN CORPUSCULAR VOLUME 89 FL (80-99); MEAN PLATELET VOLUME 9.1 FL (7.4-10.4); MONOCYTES # (AUTO) 0.4 X 10^3 (0.0-1.0); MONOCYTES % (AUTO) 9 % (0-12); NEUTROPHILS # (AUTO) 2.8 X 10^3 (1.8-7.8); NEUTROPHILS % (AUTO) 58 % (42-75); PLATELET COUNT 302 10^3/uL (130-400); RED BLOOD COUNT 4.98 10^6/uL (4.35-5.85); RED CELL DISTRIBUTION WIDTH 12.9 % (10.0-14.5); WHITE BLOOD COUNT 4.9 10^3/uL (4.3-11.0)
[2018-05-16] MEDS ORDERED: fentaNYL INJECTION 100 MCG/2 ML AMP ONE (08:52)
[2018-05-16] MEDS ORDERED: MIDAZOLAM 2 MG/2 ML (VERSED) VIAL ONE (08:52)
[2018-05-16] MEDS: LACTATED RINGERS 1,000 ML IV PRN ×2 (09:15→10:30)
[2018-05-16] MEDS ORDERED: ONDANSETRON 4 MG/2 ML (SDV) Z0FRAN ONE (09:54)
[2018-05-16] MEDS ORDERED: LIDOCAINE PF 2% 5 ML (XYLOCAINE) VIAL ONE (09:54)
[2018-05-16] MEDS ORDERED: ROCURONIUM 10 MG/ML 5 ML SYRINGE IV ONE (09:54)
[2018-05-16] MEDS ORDERED: DEXAMETHASONE 10 MG/ML (DECADRON) 1 ML VIAL ONE (09:54)
[2018-05-16] MEDS ORDERED: proPOfol 200 MG/20 ML (DIPRIVAN) VIAL IV ONE (09:54)
[2018-05-16] MEDS ORDERED: SEVOFLURANE (ULTANE) 15 ML INHAL SOLN ONE ×6 (09:55→10:35)
--- NOTE | 2018-05-16 10:46 | Progress Note-Post Operative ---
Post-Operative Progess Note Surgeon (s)/Corduroy Cutter Operator (s) Surgeon ANGEL LUX MD Corduroy Cutter Operator: sia lane APRN Pre-Operative Diagnosis Symptomatic Right inguinal hernia and screening colonoscopy Post-Operative Diagnosis symptomatic reducible right direct inguinal hernia. mild chronic stage 2 ext and int hemorrhoids. Procedure & Operative Findings Date of Procedure 05/16/18 Procedure Performed/Findings laparoscopic right inguinal hernia repair with mesh. colonoscopy. Anesthesia Type GET Estimated Blood Loss Estimated blood loss (mL): minimal Specimens/Packing Specimens Removed none ANGEL LUX MD May 16, 2018 10:46
[2018-05-16] MEDS ORDERED: MEPERIDINE (DEMEROL) INJ 50 MG/ML IVP ONE (11:00)
[2018-05-16] MEDS ORDERED: morphine INJ 10 MG/ML 1ML (SYR OR VIAL) IVP ONE (11:00)
[2018-05-16 11:55] VITALS: BP 110/70
[2018-05-16 12:00] VITALS: BP 110/70
[2018-05-16 12:25] VITALS: BP 112/66
[2018-05-16] MEDS ORDERED: HYDROcodone/APAP 5 MG/325 MG (LORTAB) TAB ONE (12:38)
[2018-05-16 12:55] VITALS: BP 117/69
[2018-05-16 13:01] VITALS: BP 117/69
--- NOTE | 2018-05-16 13:49 | OPERATIVE REPORT ---
DATE OF SERVICE: 05/16/2018 ATTENDING PRIMARY CARE PHYSICIAN: Piter PAN. PREOPERATIVE DIAGNOSES: Symptomatic reducible right inguinal hernia, screening colonoscopy. POSTOPERATIVE DIAGNOSES: Symptomatic reducible right direct inguinal hernia, mild chronic stage II external and internal hemorrhoids. Remainder of the colon and rectum were normal. PROCEDURE: Laparoscopic right inguinal hernia repair with mesh, colonoscopy. SURGEON: Angel Raines MD. MOLD DESIGNER: Juan Osuna APRN. ANESTHESIA: General endotracheal. ESTIMATED BLOOD LOSS: Minimal. FINDINGS: Right direct inguinal hernia with nothing within the hernia sac. There was no left inguinal hernia component. Mild chronic stage II external and internal hemorrhoids. The prostate gland was palpable and appeared normal. Remainder of the rectum and colon were normal with no polyps or any neoplasms identified. DISPOSITION: The patient tolerated the procedure well. INDICATIONS: The patient is a 68-year-old male who developed a bulge in the right inguinal region approximately 2 years ago. He states that this was asymptomatic at first; however, over time, it has grown larger in size and become more symptomatic and does cause him discomfort. He was seen in the office and evaluated and found to have a reducible right inguinal hernia, which was tender to palpation. 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 He is also in need of a screening colonoscopy. He has not had a colonoscopy up to this point in his life. For the most part, he is doing well, does not report any major issues with diarrhea nor constipation as well as no red blood per rectum nor any dark tarry stools. He also does not report any family history of colon cancer. DESCRIPTION OF PROCEDURE: The patient was brought to the operating room, laid supine on the table. After adequate IV pain and sedative medications and general endotracheal intubation, the abdomen was prepped and draped in standard surgical fashion. A 0.5% Marcaine and epinephrine was then used to anesthetize the overlying skin in the infraumbilical rim and a transverse skin incision was made using a 15 blade. The abdominal wall was retracted anteriorly using a sharp towel clamp and a Veress needle inserted with a low opening pressure of 0 mmHg and the abdomen was then insufflated to a 15 mmHg pressure. The Veress needle removed and a 10 mm Xcel trocar placed followed by a 10 mm 45-degree angle laparoscope visualizing the peritoneal cavity. A 4-quadrant abdominal exploration was performed. There was a right direct inguinal hernia identified with nothing within the hernia sac. There was no left inguinal hernia component. What was visualized of the omentum, colon and small bowel appeared normal. Under direct visualization, we then proceed to place bilateral 5 mm ports after the skin and peritoneal lining were anesthetized using 0.5% Marcaine with epinephrine and a transverse skin incision made using a 15 blade. The patient was then placed in Trendelenburg position. A wedge of mesentery was then dissected in the inguinal region starting laterally towards the conjoint tendon and inguinal ligament. We then proceeded medially towards the conjoint tendon. We then proceeded with inferior dissection encompassing the entire hernia sac. The cord and its contents identified and spared throughout the process. Good hemostasis was visualized. A Bard 3DMax polypropylene mesh was then placed through the 10 mm port and tacked to Chris's ligament medially and the conjoint tendon laterally. The peritoneal lining was then placed completely over the mesh and a few absorbable tacks placed to keep this in place. Good hemostasis was observed. The 10 mm port site fascia and peritoneum were then closed under direct visualization using a Rj-Behzad device and 0 Vicryl suture. The abdomen was desufflated and remaining ports removed. All skin incisions were closed using 4-0 Monocryl running subcuticular sutures and then covered with Dermabond. The patient tolerated this portion of procedure well. We reiterated the importance of no heavy lifting or exertion for a total of 6 weeks; however, especially for the first two weeks to allow incorporation of the mesh and cross bridging of type 1 collagen. He may do all activities of daily living; however, no lifting or exertion. We will also recommend scrotal support for the next 4 to 6 weeks as well. Under the same anesthesia, the patient was placed in a frog leg position and a digital rectal examination was performed. Mild chronic stage II external and internal hemorrhoids were identified, which were not actively edematous or inflamed and no bleeding. Normal sphincter tone was felt and there were no palpable masses. Prostate gland was palpable and appeared normal. The endoscope was then intubated into the anus and the rectum gently insufflated. The endoscope was then advanced through the valves of Narayan of the rectum with no polyps or any neoplasm identified. We then proceeded through the sigmoid colon where no diverticulosis identified. The endoscope was then advanced to the remainder of the descending, transverse and ascending colon to the cecum. These segments were normal. There were no polyps or neoplasms identified throughout the colon or rectum. The endoscope was then slowly withdrawn while taking a second look and suctioning of residual air with no additional findings. The patient tolerated this portion of the procedure well. We will recommend a high fiber diet with at least 30 grams of fiber per day as well as copious amounts of water to promote soft stools on a daily basis. He does not need another colonoscopy for another 10 years. Job ID: [id number] DocumentID: [id number] Dictated Date: 05/16/2018 10:55:36 Hoop Cutter Date: 05/16/2018 13:48:32 Dictated By: ANGEL RAINES MD
--- NOTE | 2018-05-16 15:00 | Anesthesia-General Post-Op ---
General Patient Condition Mental Status/LOC: Same as Preop Cardiovascular: Satisfactory Nausea/Vomiting: Absent Respiratory: Satisfactory Pain: Controlled Complications: Absent Post Op Complications Complications None Follow Up Care/Instructions Patient Instructions None needed. Anesthesia/Patient Condition Patient Condition Patient is doing well, no complaints, stable vital signs, no apparent adverse anesthesia problems. No complications reported per nursing. D/C home per [facility] Criteria: Yes SERA SEAMAN CRNA May 16, 2018 15:00
== END 2018-05-16 13:15 | disposition home or self-care (01) ==
LOC: SDC 07:59
PROVIDERS: ATTEND Surgery
DX: K40.90 Unilateral inguinal hernia, without obstruction or gangrene, not specified as recurrent (principal); Z12.11 Encounter for screening for malignant neoplasm of colon; K64.1 Second degree hemorrhoids; Z80.0 Family history of malignant neoplasm of digestive organs
CPT/HCPCS: 36415; 85025; 87081; 94664